=== PATIENT | female | born 1990 | race Asian ===

== ENCOUNTER 2017-05-17 22:13 | Inpatient (IN) | payer OTHER, MEDICAID ==
[2017-05-18] MEDS ORDERED: OBEPIDURAL* 250 ML EPIDURAL ONE (00:20)
[2017-05-18 00:39] LABS: ABS Basophils 0.1 10^3/ul (0-0.2); ABS Eosinophils 0.1 10^3/ul (0-0.6); ABS Lymphocytes 3.4 10^3/ul (1.0-4.8); ABS Monocytes 1.3 10^3/ul (0-0.8); ABS Neutrophils 10.2 10^3/ul (1.5-7.7); ABS Nucleated RBC 0 10^3/ul; Eosinophil % 0.8 % (0-6); Hematocrit 37 % (35-47); Hemoglobin 12.5 g/dl (12.0-16.0); Lymphocyte % 22.6 % (25-47); Mean Corpuscular HGB Conc 34 g/dl (31-36); Mean Corpuscular Hemoglobin 29 pg (27-31); Mean Corpuscular Volume 85 fL (80-97); Mean Platelet Volume 8 um3 (7.4-10.4); Nucleated Red Blood Cells % 0.2; Platelet Count 442 10^3/ul (150-450); Red Blood Count 4.39 10^6/ul (4.0-5.4); Red Cell Distribution Width 15 % (10.5-15); White Blood Count 15.2 10^3/ul (3.5-10.8)
[2017-05-18] MEDS ORDERED: fentaNYL* 50 MCG/ML 2 ML VIAL (100 MCG VIAL) ONE (00:40)
[2017-05-18] MEDS ORDERED: EPHEDrine (Pressors)* 50 MG/ML VIAL IV PUSH PRN ×2 (01:18)
[2017-05-18] MEDS ORDERED: Famotidine TAB* 20 MG PO PRN (01:18)
[2017-05-18] MEDS ORDERED: Phenylephrine IV* 40 MCG/ML 10 ML SYRINGE IV PUSH PRN ×2 (01:18)
[2017-05-18] MEDS ORDERED: Sodium Citrate/Citric Acid* 15 ML UDC PO PRN (01:18)
[2017-05-18] MEDS ORDERED: fentaNYL* 50 MCG/ML 2 ML VIAL (100 MCG VIAL) IV PRN (01:19)
[2017-05-18] MEDS ORDERED: Oxytocin in LR* 20 UNITS/1,000 ML BAG IVPB ONE (01:51)
[2017-05-18] MEDS ORDERED: OBEPIDURAL* 250 ML EPIDURAL SCH (02:00)
[2017-05-18] MEDS ORDERED: Dibucaine 1% 28.35 GM TUBE PR PRN (02:36)
[2017-05-18] MEDS ORDERED: Measles, Mumps,Rubella VACC* 0.5 ML/VIAL SUBCUT ONE (02:36)
[2017-05-18] MEDS ORDERED: Glycerin ADULT SUPP PR PRN (02:36)
[2017-05-18] MEDS ORDERED: Witch Hazel PAD* JAR TOPICAL PRN (02:36)
[2017-05-18] MEDS ORDERED: Acetaminophen TAB* 325 MG PO PRN (02:36)
[2017-05-18] MEDS ORDERED: Oxytocin in LR* 20 UNITS/1,000 ML BAG IVPB SCH (03:00)
[2017-05-18] MEDS: Ibuprofen TAB* 600 MG PO PRN ×2 (06:21→15:52)
[2017-05-18] MEDS: Docusate CAP* 100 MG PO SCH ×2 (08:44→14:29)
[2017-05-19] MEDS: Ibuprofen TAB* 600 MG PO PRN (00:02)
[2017-05-19 06:51] LABS: Hematocrit 32 % (35-47); Hemoglobin 10.8 g/dl (12.0-16.0); Mean Corpuscular HGB Conc 34 g/dl (31-36); Mean Corpuscular Hemoglobin 29 pg (27-31); Mean Corpuscular Volume 85 fL (80-97); Mean Platelet Volume 7 um3 (7.4-10.4); Platelet Count 354 10^3/ul (150-450); Red Blood Count 3.73 10^6/ul (4.0-5.4); Red Cell Distribution Width 15 % (10.5-15); White Blood Count 10.1 10^3/ul (3.5-10.8)
[2017-05-19 08:29] VITALS: BP 101/56
[2017-05-19] MEDS ORDERED: Ferrous Gluconate TAB* 324 MG TAB PO SCH (09:00)
== END 2017-05-19 09:55 | disposition home or self-care (01) | DRG 775 ==
LOC: MCHOBOUT 22:13 → MCHOB 22:44
PROVIDERS: ADMIT Midwife; ATTEND Midwife
PROC: 10E0XZZ Delivery of Products of Conception, External Approach (ICD-10-PCS; principal; 2017-05-18)
PROC: 10907ZC Drainage of Amniotic Fluid, Therapeutic from Products of Conception, Via Natural or Artificial Opening (ICD-10-PCS; 2017-05-18)
DX: O66.0 Obstructed labor due to shoulder dystocia (principal); Z37.0 Single live birth; Z3A.39 39 weeks gestation of pregnancy
CPT/HCPCS: 36415; 85025; 85027; 86850; 86900; 86901; A9270-GY; J3010